=== PATIENT | male | born 1995 | race African-American/Black ===

== ENCOUNTER 2020-12-26 13:17 | Emergency (ER) | payer OTHER ==
[~2020-12-26] VITALS: Ht 182.9 cm; Wt 100.0 kg
--- NOTE | 2020-12-26 13:44 | REP ---
INDICATION: PAIN, DECREASED ROM. COMPARISON: None. TECHNIQUE: Four views FINDINGS: No acute fracture or destructive osseous lesion. The mortise is intact. IMPRESSION: No acute abnormality <Electronically signed by Jacob Braga > 12/26/20 [id number]
[2020-12-26 14:30] VITALS: BP 131/86
== END 2020-12-26 14:33 | disposition home or self-care (01) ==
LOC: M ED 13:17
DX: S93.402A Sprain of unspecified ligament of left ankle, initial encounter (principal); X50.9XXA Other and unspecified overexertion or strenuous movements or postures, initial encounter; Y92.89 Other specified places as the place of occurrence of the external cause; Y93.89 Activity, other specified; Y99.8 Other external cause status